=== PATIENT | male | born 1960 | race Caucasian/White ===

== ENCOUNTER → 2016-08-24 | Outpatient (CLI) | payer OTHER | LOC: RAD 17:51 | DX: J41.0 Simple chronic bronchitis (principal); F17.210 Nicotine dependence, cigarettes, uncomplicated; R91.8 Other nonspecific abnormal finding of lung field | CPT/HCPCS: 71020 ==

== ENCOUNTER → 2016-09-29 | Outpatient (CLI) | payer OTHER | LOC: KOH-I 09:27 | DX: R91.8 Other nonspecific abnormal finding of lung field (principal); E78.2 Mixed hyperlipidemia; F17.210 Nicotine dependence, cigarettes, uncomplicated; G47.10 Hypersomnia, unspecified; G89.4 Chronic pain syndrome; L08.89 Other specified local infections of the skin and subcutaneous tissue; M12.861 Other specific arthropathies, not elsewhere classified, right knee; M13.812 Other specified arthritis, left shoulder; M13.852 Other specified arthritis, left hip; M13.861 Other specified arthritis, right knee; M13.862 Other specified arthritis, left knee; N32.81 Overactive bladder; R03.0 Elevated blood-pressure reading, without diagnosis of hypertension; R35.0 Frequency of micturition; R53.83 Other fatigue; S43.422D Sprain of left rotator cuff capsule, subsequent encounter; S46.092D Other injury of muscle(s) and tendon(s) of the rotator cuff of left shoulder, subsequent encounter; Z68.38 Body mass index [BMI] 38.0-38.9, adult | CPT/HCPCS: 71260; Q9963 ==

== ENCOUNTER → 2020-10-06 | Outpatient (CLI) | payer OTHER ==
[~2020-10-06] MED LIST: BACTRIM DS TAB1 EACH PO; BACTROBAN NASAL1 GM; BACTROBAN OINT22 GM TOP; LIORESAL TAB 1010 MG PO; LIPITOR TAB 2020 MG PO; NAPROSYN500 MG PO; NORVASC 5 MG TAB5 MG PO; TYLENOL 325MG325 MG PO; VALTREX1000 MG PO
[2020-10-06 15:10] LABS: HEMOGLOBIN 16.3 gm/dl (14.0-17.5); RED BLOOD COUNT 5.25 M/UL (4.20-5.50); WHITE BLOOD COUNT 6.3 K/UL (4.5-11.0)
[2020-10-06 15:43] LABS: BUN/CREATININE RATIO 20 (0-10)
[2020-10-08 13:15] LABS: CHOLESTEROL, TOTAL 164 mg/dL (100-199); HDL-C 44 mg/dL (>39); HDL-P (TOTAL) 26.5 umol/L (>=30.5); LARGE HDL-P 3.6 umol/L (>=4.8); LARGE VLDL-P 2.1 nmol/L (<=2.7); LDL SIZE 21.2 nm (>20.5); LDL SIZE 21.2 nm (>=20.8); LDL-C 105 mg/dL (0-99); LDL-P 1407 nmol/L (<1000); LP-IR SCORE 50 (<=45); SMALL LDL-P 654 nmol/L (<=527); TRIGLYCERIDES 77 mg/dL (0-149); VLDL SIZE 48.6 nm (<=46.6)
== END ==
LOC: LAB 14:44
PROVIDERS: Emergency Medicine
DX: E78.2 Mixed hyperlipidemia (principal); I10 Essential (primary) hypertension; N32.81 Overactive bladder; R03.0 Elevated blood-pressure reading, without diagnosis of hypertension; R35.0 Frequency of micturition; R53.83 Other fatigue; R60.0 Localized edema; R73.03 Prediabetes
CPT/HCPCS: 36415; 80053; 80061; 83704; 84153; 84550; 85025

== ENCOUNTER → 2021-01-10 | Outpatient (CLI) | payer OTHER ==
[2021-01-14 18:17] LABS: TESTOSTERONE, SERUM 572 ng/dL (264-916)
== END ==
LOC: LAB 14:14
PROVIDERS: Emergency Medicine
DX: E78.2 Mixed hyperlipidemia (principal); G89.4 Chronic pain syndrome; E03.8 Other specified hypothyroidism; R73.03 Prediabetes; E87.2 Acidosis; Z85.46 Personal history of malignant neoplasm of prostate
CPT/HCPCS: 36415; 84402; 84403; 84443

== ENCOUNTER → 2021-05-02 | Outpatient (CLI) | payer OTHER ==
[~2021-05-02] MED LIST changes: +ABILIFY 2 MG TAB2 MG PO; +AMLODIPINE BESYL5 MG PO; +ATORVASTATIN CA40 MG PO; +BACLOFEN10 MG PO; +MELOXICAM15 MG PO; +NAPROXEN500 MG PO; +ZOLOFT100 MG PO
[2021-05-02 12:25] LABS: HEMOGLOBIN 16.8 gm/dl (14.0-17.5); RED BLOOD COUNT 5.46 M/UL (4.20-5.50); WHITE BLOOD COUNT 7.3 K/UL (4.5-11.0)
[2021-05-02 12:52] LABS: BUN/CREATININE RATIO 25 (0-10)
== END ==
LOC: OPSV2 11:06 → EDSTATUS 11:30 → OPSV2 11:30
PROVIDERS: Orthopaedic Surgery
DX: Z01.818 Encounter for other preprocedural examination (principal)
CPT/HCPCS: 71046; 80048; 85025; 85610; 85730; 93005

== ENCOUNTER 2021-05-13 07:25 | Inpatient (IN) | payer OTHER ==
[~2021-05-13] VITALS: Ht 190.5 cm; Wt 131.5 kg
--- NOTE | 2021-05-14 02:56 | NUR ---
BEDSIDE TABLE MOVED TO BATHROOM, BLINDS DOWN AND CURTAIN PULLED PER TOILET AND LAUNDRY SOAP SUPERVISOR DUE TO TORNADO WATCH
== END 2021-05-14 10:40 | disposition home or self-care (01) | DRG 470 ==
LOC: OR 07:25 → EDSTATUS 10:00 → CDU 17:10 → OR 18:53 → M/S 18:55
PROVIDERS: ADMIT Orthopaedic Surgery
PROC: 0SRC0J9 Replacement of Right Knee Joint with Synthetic Substitute, Cemented, Open Approach (ICD-10-PCS; principal; 2021-05-13 10:00)
DX: M17.11 Unilateral primary osteoarthritis, right knee (principal); Z88.0 Allergy status to penicillin; F41.9 Anxiety disorder, unspecified; Z20.822 Contact with and (suspected) exposure to COVID-19; F32.A Depression, unspecified; Z96.642 Presence of left artificial hip joint; E78.5 Hyperlipidemia, unspecified; Z98.890 Other specified postprocedural states; Z87.01 Personal history of pneumonia (recurrent)
CPT/HCPCS: 73560; 86850; 86900; 86901; 97161; 97165; J0171; J0735; J1100; J1200; J1885; J2001; J2250; J2270; J2405; J2704; J2710; J2795; J3010; J3260; J3475; J7120

== ENCOUNTER 2021-12-21 16:30 | Emergency (ER) | payer OTHER | END 2021-12-21 18:35 | disposition home or self-care (01) | LOC: ER1 16:30 | DX: F32.A Depression, unspecified (principal); F17.210 Nicotine dependence, cigarettes, uncomplicated; Z88.0 Allergy status to penicillin | CPT/HCPCS: 99283 ==

== ENCOUNTER → 2021-12-21 | Outpatient (CLI) | payer OTHER ==
[2021-12-21 16:37] LABS: HEMOGLOBIN 15.9 gm/dl (14.0-17.5); RED BLOOD COUNT 5.24 M/UL (4.20-5.50); WHITE BLOOD COUNT 7.6 K/UL (4.5-11.0)
[2021-12-21 17:02] LABS: BUN/CREATININE RATIO 13 (0-10)
[2021-12-23 10:14] LABS: CREATININE, URINE 206.6 mg/dL (Not Estab.)
[2021-12-23 15:14] LABS: CHOLESTEROL, TOTAL 170 mg/dL (100-199); HDL SIZE 8.7 nm (>=9.2); HDL-C 40 mg/dL (>39); HDL-P (TOTAL) 25.8 umol/L (>=30.5); LARGE HDL-P 3.1 umol/L (>=4.8); LARGE VLDL-P 4.7 nmol/L (<=2.7); LDL-C 107 mg/dL (0-99); LDL-P 1303 nmol/L (<1000); LP-IR SCORE 66 (<=45); SMALL LDL-P 456 nmol/L (<=527); TRIGLYCERIDES 128 mg/dL (0-149); VLDL SIZE 47.9 nm (<=46.6)
== END ==
LOC: US 12-12 15:00
PROVIDERS: Emergency Medicine
DX: R60.0 Localized edema (principal); I10 Essential (primary) hypertension; E78.2 Mixed hyperlipidemia; R06.02 Shortness of breath; F41.1 Generalized anxiety disorder; F33.1 Major depressive disorder, recurrent, moderate
CPT/HCPCS: 36415; 71045; 80053; 80061; 82043; 82570; 83704; 83880; 84153; 84443; 84550; 85025; 85379; 93971